=== PATIENT | female | born 1950 | race Two or more races ===

== ENCOUNTER 2018-01-01 07:32 | Outpatient (CLI) | payer OTHER | END 2018-01-01 07:37 | disposition home or self-care (01) | LOC: SONOGRAMA 07:32 | DX: E04.1 Nontoxic single thyroid nodule (principal) ==

== ENCOUNTER 2019-02-04 10:35 | Outpatient (CLI) | payer OTHER | END 2019-02-04 10:41 | disposition home or self-care (01) | LOC: SONOGRAMA 10:35 | DX: E04.1 Nontoxic single thyroid nodule (principal) ==